=== PATIENT | female | born 1970 | race Caucasian/White ===

== ENCOUNTER 2017-08-04 21:04 | Inpatient (IN) | payer OTHER ==
[~2017-08-04] VITALS: Ht 157.5 cm; Wt 99.8 kg
[~2017-08-04 21:04] MED LIST: ALBUTEROL; ALBUTEROL2.5 MG/3 M IH; AVELOX ABC PAC400 MG PO; CEFADROXIL500 MG PO; COZAAR100 MG; GUAIFENESIN DM118 M1 PO; LEVAQUIN750 MG PO; LEVSIN/SL0.125 MG PO; MAXIDE; NEOTUSS PLUS L474 ML PO; PEPCID40 MG PO; PROTONIX40 MG PO; PROVENTIL HFA6.7 GM IH; PULMICORT; SINGULAIR 10MG10 MG PO; SYMBICORT 16010.2 GM IH; TESSALON200 MG PO; TUSNEL LIQUID178 ML PO; ZOFRAN4 MG PO; ZYNCOF 20-400120 ML PO
[2017-08-04] MEDS ORDERED: PULMICORT1 MG/2 ML (21:19)
[2017-08-07] MEDS ORDERED: LIPITOR20 MG PO (12:12)
[2017-08-07] MEDS ORDERED: AMLODIPINE BESY10 MG PO (12:12)
[2017-08-07] MEDS ORDERED: LOSARTAN POTASS50 MG PO (12:12)
[2017-08-07] MEDS ORDERED: ZOLOFT20 MG/1 ML PO (12:12)
[2017-08-07] MEDS ORDERED: 3-DAY VAGINAL C21 GM VAG (12:12)
[2017-08-07] MEDS ORDERED: XANAX0.25 MG PO (12:12)
== END 2017-08-07 14:35 | DRG 305 ==
LOC: ER 21:04 → ICU-2 08-05 16:23 → SEC-K 08-07 05:00
PROC: B246ZZZ Ultrasonography of Right and Left Heart (ICD-10-PCS; principal; 2017-08-05)
PROC: BW21YZZ Computerized Tomography (CT Scan) of Abdomen and Pelvis using Other Contrast (ICD-10-PCS; 2017-08-05)
PROC: C23GYZZ Positron Emission Tomographic (PET) Imaging of Myocardium using Other Radionuclide (ICD-10-PCS; 2017-08-06)
PROC: 4A12XM4 Monitoring of Cardiac Stress, External Approach (ICD-10-PCS; 2017-08-06)
PROC: 3E033HZ Introduction of Radioactive Substance into Peripheral Vein, Percutaneous Approach (ICD-10-PCS; 2017-08-06)
DX: I16.9 Hypertensive crisis, unspecified (principal); I11.9 Hypertensive heart disease without heart failure; R07.89 Other chest pain

== ENCOUNTER 2017-11-05 07:28 | Day surgery (SDC) | payer OTHER ==
[~2017-11-05 07:28] MED LIST changes: +3-DAY VAGINAL C21 GM VAG; +AMLODIPINE BESY10 MG PO; +LIPITOR20 MG PO; +LOSARTAN POTASS50 MG PO; +PULMICORT1 MG/2 ML; +XANAX0.25 MG PO; +ZOLOFT20 MG/1 ML PO
== END 2017-11-05 13:40 | disposition home or self-care (01) ==
LOC: AMB-ENDOS 07:28
DX: K64.1 Second degree hemorrhoids (principal)

== ENCOUNTER 2019-01-08 09:39 | Emergency (ER) | payer OTHER ==
[~2019-01-08] VITALS: Ht 157.5 cm; Wt 112.0 kg
== END 2019-01-08 17:27 | disposition home or self-care (01) ==
LOC: ER 09:39
DX: K57.32 Diverticulitis of large intestine without perforation or abscess without bleeding (principal)

== ENCOUNTER 2020-06-14 08:57 | Outpatient (CLI) | payer OTHER | END 2020-06-14 09:25 | disposition home or self-care (01) | LOC: LAB 08:57 | PROVIDERS: ATTEND Internal Medicine | DX: M79.81 Nontraumatic hematoma of soft tissue (principal) ==

== ENCOUNTER 2021-01-22 14:33 | Outpatient (CLI) | payer OTHER | END 2021-01-22 14:38 | disposition home or self-care (01) | LOC: SONOGRAMA 14:33 | DX: M25.462 Effusion, left knee (principal) ==

== ENCOUNTER 2022-11-13 09:25 | Emergency (ER) | payer OTHER ==
[~2022-11-13] VITALS: Ht 157.5 cm; Wt 111.1 kg
[2022-11-13] MEDS ORDERED: DICYCLOMINE HCL20 MG PO (09:40)
== END 2022-11-13 17:36 | disposition home or self-care (01) ==
LOC: ER 09:25
DX: K57.32 Diverticulitis of large intestine without perforation or abscess without bleeding (principal); Z91.013 Allergy to seafood; Z91.041 Radiographic dye allergy status; Z88.8 Allergy status to other drugs, medicaments and biological substances; I10 Essential (primary) hypertension

== ENCOUNTER 2023-01-18 19:13 | Emergency (ER) | payer OTHER ==
[~2023-01-18] VITALS: Ht 157.5 cm; Wt 113.4 kg
[~2023-01-18 19:13] MED LIST changes: +DICYCLOMINE HCL20 MG PO
[2023-01-18] MEDS ORDERED: PEPCID AC20 MG PO (20:40)
[2023-01-18] MEDS ORDERED: BACTRIM DS TAB1 EACH PO (20:40)
[2023-01-18] MEDS ORDERED: DICLOFENAC SODI75 MG PO (20:40)
== END 2023-01-18 20:49 | disposition home or self-care (01) ==
LOC: ER 19:13
DX: L03.90 Cellulitis, unspecified (principal); Z88.6 Allergy status to analgesic agent; Z91.041 Radiographic dye allergy status

== ENCOUNTER 2023-01-19 11:19 | Emergency (ER) | payer OTHER ==
[~2023-01-19] VITALS: Ht 157.5 cm; Wt 68.0 kg
[~2023-01-19 11:19] MED LIST changes: +BACTRIM DS TAB1 EACH PO; +DICLOFENAC SODI75 MG PO; +PEPCID AC20 MG PO
== END 2023-01-19 17:17 | disposition home or self-care (01) ==
LOC: ER 11:19
DX: I73.9 Peripheral vascular disease, unspecified (principal); I87.2 Venous insufficiency (chronic) (peripheral)

== ENCOUNTER 2023-06-10 09:50 | Emergency (ER) | payer OTHER ==
[~2023-06-10] VITALS: Ht 157.5 cm; Wt 110.2 kg
[2023-06-10] MEDS ORDERED: COZAAR50 MG PO (10:27)
[2023-06-10 11:30] LABS: HEMATOCRIT 42.2 % (36.0-45.00); HEMOGLOBIN 14.5 g/dL (12.0-15.00); MEAN CELL VOLUME 85.1 fL (80.00-100.00); MEAN CORPUSCULAR HEMOGLOBIN 29.3 pg (27.00-32.0); MEAN CORPUSCULAR HGB CONC 34.5 g/dl (32.0-36.0); PLATELET COUNT 198 K/uL (150-450); RED BLOOD COUNT 4.96 M/uL (4.00-6.00); RED CELL DISTRIBUTION WIDTH 14.1 % (11.5-14.5)
[2023-06-10 12:37] LABS: URINE APPEARANCE Clear; URINE BILIRRUBIN Negative (NEGATIVE); URINE BLOOD NHT; URINE COLOR Yellow; URINE GLUCOSE Negative (NEGATIVE); URINE LEUKOCYTE Negative; URINE NITRATE Negative; URINE PROTEIN Negative (NEGATIVE)
[2023-06-10 12:42] LABS: URINE BACTERIA 47.8 uL (0.0-1933); URINE EPITHELIAL CELLS 5.3 uL (0.0-38.8); URINE RBC 21.9 uL (0.0-20.8)
[2023-06-10 13:28] LABS: CALCIUM 8.7 mg/dL (8.5-10.1); CREATININE SERUM 0.77 mg/dL (0.55-1.02); GFR 77.83; POTASSIUM 3.64 mEq/L (3.5-5.1)
[2023-06-10] MEDS ORDERED: LEVSIN/SL0.125 MG SL (17:07)
[2023-06-10] MEDS ORDERED: METRONIDAZOLE500 MG PO (17:07)
[2023-06-10] MEDS ORDERED: OMEPRAZOLE40 MG PO (17:07)
[2023-06-10] MEDS ORDERED: CIPRO500 MG PO (17:07)
== END 2023-06-10 19:36 | disposition home or self-care (01) ==
LOC: ER 09:50
PROVIDERS: Emergency Medicine
DX: K57.92 Diverticulitis of intestine, part unspecified, without perforation or abscess without bleeding (principal); R10.9 Unspecified abdominal pain; Z88.6 Allergy status to analgesic agent; Z91.041 Radiographic dye allergy status
CPT/HCPCS: 36415; 74177; Q9965

== ENCOUNTER 2024-03-07 11:58 | Emergency (ER) | payer OTHER ==
[~2024-03-07] VITALS: Ht 157.5 cm; Wt 108.4 kg
[~2024-03-07 11:58] MED LIST changes: +CIPRO500 MG PO; +COZAAR50 MG PO; +LEVSIN/SL0.125 MG SL; +METRONIDAZOLE500 MG PO; +OMEPRAZOLE40 MG PO
[2024-03-07] MEDS ORDERED: METRONIDAZOLE/SODIUM CHLORIDE 500 MG/100 ML PIGGYBACK IV ONE ×2 (13:45→13:47)
[2024-03-07 14:15] LABS: HEMATOCRIT 43.9 % (36.0-45.00); HEMOGLOBIN 14.9 g/dL (12.0-15.00); MEAN CELL VOLUME 86.1 fL (80.00-100.00); MEAN CORPUSCULAR HEMOGLOBIN 29.2 pg (27.00-32.0); PLATELET COUNT 219 K/uL (150-450)
[2024-03-07 14:49] LABS: ALBUMIN 3.9 gm/dL (3.4-5.0); BILIRUBIN TOTAL 0.47 mg/dL (0.3-1.2); CALCIUM 9.2 mg/dL (8.5-10.1); CREATININE SERUM 0.92 mg/dL (0.55-1.02); GFR 63.38; GLOBULINA 3.6 G/DL (2.4-3.5); POTASSIUM 3.67 mEq/L (3.5-5.1); TOTAL PROTEIN 7.5 gm/dL (6.4-8.2)
[2024-03-07] MEDS ORDERED: FAMOTIDINE/PF 20 MG/2 ML VIAL IV PUSH ONE (15:00)
[2024-03-07 15:16] LABS: PH,URINE 5.5 (5.0-8.0); URINE APPEARANCE Clear; URINE BILIRRUBIN Negative (NEGATIVE); URINE BLOOD Negative; URINE COLOR Yellow; URINE GLUCOSE Negative (NEGATIVE); URINE KETONE Negative (NEGATIVE); URINE LEUKOCYTE Negative; URINE NITRATE Negative; URINE PROTEIN Trace (NEGATIVE); URINE UROBILINOGEN 0.2 E.U./dl
[2024-03-07 15:20] LABS: URINE BACTERIA 15.1 uL (0.0-1933); URINE CAST 3.66 uL (0.0-1.40); URINE EPITHELIAL CELLS 19.7 uL (0.0-38.8); URINE RBC 20.3 uL (0.0-20.8); URINE WBC 4.3 uL (0.0-23.2)
[2024-03-07 15:36] LABS: URINE MUCUS HEAVY
== END 2024-03-07 17:09 | disposition home or self-care (01) ==
LOC: ER 12:00
PROVIDERS: Emergency Medicine
DX: K64.1 Second degree hemorrhoids (principal); K59.00 Constipation, unspecified; I10 Essential (primary) hypertension; Z88.8 Allergy status to other drugs, medicaments and biological substances

== ENCOUNTER 2024-10-14 14:45 | Emergency (ER) | payer OTHER ==
[~2024-10-14] VITALS: Ht 160 cm; Wt 106.6 kg
[2024-10-14 15:25] VITALS: BP 114/79; O2SAT 98
[2024-10-14] MEDS ORDERED: METHYLPREDNISOLONE SOD SUCC 125 MG VIAL IV STA (16:51)
[2024-10-14] MEDS ORDERED: METHYLPREDNISOLONE SOD SUCC 125 MG VIAL ONE (17:03)
[2024-10-14 17:34] LABS: HEMATOCRIT 41.6 % (36.0-45.00); HEMOGLOBIN 14.1 g/dL (12.0-15.00); MEAN CELL VOLUME 85.4 fL (80.00-100.00); PLATELET COUNT 213 K/uL (150-450); RED BLOOD COUNT 4.87 M/uL (4.00-6.00); RED CELL DISTRIBUTION WIDTH 14.2 % (11.5-14.5)
[2024-10-14 17:59] LABS: CALCIUM 9.1 mg/dL (8.5-10.1); CREATININE SERUM 0.82 mg/dL (0.55-1.02); GFR 72.11; POTASSIUM 3.59 mEq/L (3.5-5.1)
[2024-10-14 18:22] LABS: PH,URINE 5.5 (5.0-8.0); URINE APPEARANCE Clear; URINE BILIRRUBIN Negative (NEGATIVE); URINE BLOOD Small; URINE COLOR Yellow; URINE GLUCOSE Negative (NEGATIVE); URINE KETONE Negative (NEGATIVE); URINE LEUKOCYTE Negative; URINE NITRATE Negative; URINE PROTEIN Negative (NEGATIVE); URINE UROBILINOGEN 0.2 E.U./dl
[2024-10-14 18:26] LABS: URINE BACTERIA 236.1 uL (0.0-1933); URINE EPITHELIAL CELLS 8.3 uL (0.0-38.8); URINE RBC 7.8 uL (0.0-20.8)
[2024-10-14 18:35] LABS: URINE CAST 0.14 uL (0.0-1.40); URINE WBC 1.7 uL (0.0-23.2)
[2024-10-14 18:57] LABS: INFLUENZA A AG NEGATIVE (NEGATIVE)
[2024-10-14 18:59] LABS: COVID-19 AG NEGATIVE (NEGATIVE)
[2024-10-14] MEDS ORDERED: CEFTRIAXONE SODIUM 1,000 MG VIAL IM STA (19:07)
[2024-10-14] MEDS ORDERED: CEFTRIAXONE SODIUM 1,000 MG VIAL ONE (19:31)
== END 2024-10-14 21:19 | disposition home or self-care (01) ==
LOC: ER 14:46
PROVIDERS: General Practice
DX: R05.8 Other specified cough (principal); Z91.013 Allergy to seafood; Z91.041 Radiographic dye allergy status; Z88.8 Allergy status to other drugs, medicaments and biological substances; Z20.822 Contact with and (suspected) exposure to COVID-19
CPT/HCPCS: 36415; 96365; 96372; 99282; J0696; J3490

== ENCOUNTER 2024-10-18 07:28 | Emergency (ER) | payer OTHER ==
[~2024-10-18] VITALS: Ht 157.5 cm; Wt 107.5 kg
[2024-10-18] MEDS ORDERED: LOSARTAN POTASS50 MG PO (08:31)
[2024-10-18] MEDS ORDERED: PEPCID AC20 MG PO (08:31)
[2024-10-18] MEDS ORDERED: ZYNCOF 400-201 EACH PO (08:37)
[2024-10-18] MEDS ORDERED: CEFDINIR300 MG PO (08:37)
[2024-10-18] MEDS ORDERED: MEDROL4 MG PO (08:37)
[2024-10-18] MEDS ORDERED: METHYLPREDNISOLONE SOD SUCC 125 MG VIAL IV STA (08:52)
[2024-10-18] MEDS ORDERED: LEVALBUTEROL HCL 1.25 MG/3 ML SOLUTION IH STA (08:53)
[2024-10-18] MEDS ORDERED: BUDESONIDE 0.5 MG/2 ML AMPUL.NEB IH STA (08:54)
[2024-10-18] MEDS ORDERED: MAGNESIUM SULFATE IN WATER 4 GM/100 ML PIGGYBACK IV STA (08:54)
[2024-10-18] MEDS ORDERED: HYDROCODONE/CHLORPHEN P-STIREX 5 ML ML PO STA (08:55)
[2024-10-18] MEDS ORDERED: 0.9 % SODIUM CHLORIDE 1,000 ML IV STA (08:56)
[2024-10-18] MEDS ORDERED: METHYLPREDNISOLONE SOD SUCC 125 MG VIAL ONE (09:02)
[2024-10-18 10:12] LABS: PH,URINE 6.5 (5.0-8.0); URINE APPEARANCE Clear; URINE BILIRRUBIN Negative (NEGATIVE); URINE BLOOD Trace; URINE COLOR Yellow; URINE GLUCOSE Negative (NEGATIVE); URINE KETONE Negative (NEGATIVE); URINE LEUKOCYTE Negative; URINE NITRATE Negative; URINE PROTEIN Negative (NEGATIVE); URINE UROBILINOGEN 0.2 E.U./dl
[2024-10-18 10:17] LABS: URINE EPITHELIAL CELLS 53.2 uL (0.0-38.8); URINE RBC 10.6 uL (0.0-20.8)
[2024-10-18 10:17] LABS: HEMATOCRIT 41.7 % (36.0-45.00); HEMOGLOBIN 14.2 g/dL (12.0-15.00); MEAN CELL VOLUME 86.6 fL (80.00-100.00); MEAN CORPUSCULAR HEMOGLOBIN 29.4 pg (27.00-32.0); MEAN CORPUSCULAR HGB CONC 33.9 g/dl (32.0-36.0); PLATELET COUNT 218 K/uL (150-450); RED BLOOD COUNT 4.82 M/uL (4.00-6.00); RED CELL DISTRIBUTION WIDTH 14.2 % (11.5-14.5)
[2024-10-18 10:24] LABS: URINE BACTERIA 3.6 uL (0.0-1933); URINE WBC 0.3 uL (0.0-23.2)
[2024-10-18] MEDS ORDERED: LEVALBUTEROL HCL 1.25 MG/3 ML SOLUTION IH ONE (10:33)
[2024-10-18] MEDS ORDERED: BUDESONIDE 0.5 MG/2 ML AMPUL.NEB IH ONE (10:33)
[2024-10-18 10:46] LABS: INFLUENZA A AG NEGATIVE (NEGATIVE)
[2024-10-18 10:49] LABS: CREATININE SERUM 0.69 mg/dL (0.55-1.02); GFR 88.01; POTASSIUM 4.24 mEq/L (3.5-5.1)
[2024-10-18 10:50] LABS: ABG PH 7.459 (7.35-7.45); ABG PO2 89.4 mmHg (80-100); BASE EXCESS 2.6 mmol/l; BICARBONATE 26.3 mmol/l (23-25); SaO2 97.4 %; Tco2 27.5 mmol/l
[2024-10-18 11:33] LABS: allen test SATISFACTORY; o2 21 %; puncture site RADIAL LEFT
[2024-10-18 11:34] LABS: mode ROOM AIR
== END 2024-10-18 14:30 | disposition home or self-care (01) ==
LOC: ER 07:29
PROVIDERS: General Practice
DX: J45.909 Unspecified asthma, uncomplicated (principal); I10 Essential (primary) hypertension; Z88.8 Allergy status to other drugs, medicaments and biological substances

== ENCOUNTER 2024-10-28 16:21 | Inpatient (IN) | payer OTHER ==
[~2024-10-28] VITALS: Ht 157.5 cm; Wt 105.2 kg
[~2024-10-28 16:21] MED LIST changes: +CEFDINIR300 MG PO; +MEDROL4 MG PO; +ZYNCOF 400-201 EACH PO
[2024-10-28] MEDS ORDERED: PRILOSEC OTC20 MG PO (16:44)
--- NOTE | 2024-10-28 16:46 | NUR ---
PACIENTE ALERTA Y ORIENTADA X3. REFIERE COMENZAR CON [employer] [facility], TOS Y DIFICULTAD RESPIRATORIO DESDE HACE VARIOS MAHONEY QUE NO MEJORA CON [place]. AL MOMENTO DE TRIAGE NO SE OBSERVA DISTRESS Y SATURANDO 97%. SE ELDA S/V Y SE UBICA.
[2024-10-28] MEDS ORDERED: LEVALBUTEROL HCL 1.25 MG/3 ML SOLUTION IH SCH (17:00)
[2024-10-28] MEDS ORDERED: METHYLPREDNISOLONE SOD SUCC 125 MG VIAL IV STA (17:00)
[2024-10-28] MEDS ORDERED: 0.9 % SODIUM CHLORIDE 1,000 ML IV STA (17:01)
[2024-10-28] MEDS ORDERED: METHYLPREDNISOLONE SOD SUCC 125 MG VIAL ONE (17:09)
[2024-10-28] MEDS ORDERED: LEVALBUTEROL HCL 0.63 MG/3 ML SOLUTION IH ONE (17:24)
--- NOTE | 2024-10-28 17:45 | NUR ---
PTE ALERTA Y ORIENTADA X3 ES EVALUADA POR EL DR. BROOKE. SE ORIENTA SOBRE TRATAMIENTO, VERBALIZA ENTENDER. SE CANALIZA, COLECTA MUESTRAS DE LAB Y SE ADMINISTRA MEDICAMENTO JACQUELINE ORDEN MEDICA BAJO MEDIDAS ASEPTICAS. SE NOTIFICA CT. TERAPIAS ALVIRA ADMINISTRA TERAPIAS Y REALZIA ABG.
[2024-10-28 18:04] LABS: HEMATOCRIT 41.7 % (36.0-45.00); HEMOGLOBIN 14.1 g/dL (12.0-15.00); MEAN CORPUSCULAR HEMOGLOBIN 29.3 pg (27.00-32.0); MEAN CORPUSCULAR HGB CONC 33.7 g/dl (32.0-36.0); PLATELET COUNT 174 K/uL (150-450); RED BLOOD COUNT 4.79 M/uL (4.00-6.00); RED CELL DISTRIBUTION WIDTH 14.3 % (11.5-14.5)
[2024-10-28 18:23] LABS: ALBUMIN 3.1 gm/dL (3.4-5.0); BILIRUBIN TOTAL 0.36 mg/dL (0.3-1.2); CALCIUM 8.6 mg/dL (8.5-10.1); CREATININE SERUM 0.82 mg/dL (0.55-1.02); GFR 72.11; GLOBULINA 3.6 G/DL (2.4-3.5); POTASSIUM 3.75 mEq/L (3.5-5.1); TOTAL PROTEIN 6.7 gm/dL (6.4-8.2)
[2024-10-28 18:29] LABS: COVID-19 AG NEGATIVE (NEGATIVE)
[2024-10-28 18:30] LABS: INFLUENZA A AG NEGATIVE (NEGATIVE)
[2024-10-28 18:30] LABS: ABG PH 7.445 (7.35-7.45); ABG pCO2 38.1 mmHg (35-45); BASE EXCESS 1.6 mmol/l; BICARBONATE 25.5 mmol/l (23-25); SaO2 95.6 %; Tco2 26.7 mmol/l; o2 21 %
[2024-10-28 18:31] LABS: allen test SATISFACTORY; mode ROOM AIR; puncture site RADIAL RIGHT
[2024-10-28 18:32] LABS: ABG PO2 75.3 mmHg (80-100)
[2024-10-28] MEDS ORDERED: ALBUTEROL SULFATE 1.25 MG/3 ML AMPUL.NEB IH SCH (20:41)
[2024-10-28] MEDS ORDERED: IPRATROPIUM BROMIDE 0.5 MG/2.5 ML AMPUL.NEB IH SCH (20:42)
[2024-10-28] MEDS ORDERED: AZITHROMYCIN 500 MG VIAL IV SCH (20:42)
[2024-10-28] MEDS ORDERED: METHYLPREDNISOLONE SOD SUCC 40 MG VIAL IV SCH (20:42)
[2024-10-28] MEDS ORDERED: LOSARTAN POTASSIUM 50 MG TABLET PO SCH (20:45)
[2024-10-28] MEDS ORDERED: AMLODIPINE BESYLATE 10 MG TABLET PO SCH (21:07)
[2024-10-29] MEDS ORDERED: METHYLPREDNISOLONE SOD SUCC 40 MG VIAL ONE (01:05)
[2024-10-29] MEDS ORDERED: AZITHROMYCIN 500 MG VIAL IV ONE ×2 (01:05→07:44)
[2024-10-29] MEDS ORDERED: IPRATROPIUM BROMIDE 0.5 MG/2.5 ML AMPUL.NEB IH ONE (01:14)
[2024-10-29] MEDS ORDERED: ALBUTEROL SULFATE 3 ML/2.5 MG AMPUL.NEB IH ONE (01:14)
[2024-10-29 03:21] VITALS: BP 109/72; O2SAT 94
[2024-10-29 09:00] VITALS: BP 130/76; O2SAT 96
[2024-10-29] MEDS ORDERED: FAMOtidine 20 MG TABLET PO SCH (17:00)
[2024-10-29 17:09] VITALS: BP 125/75
[2024-10-29] MEDS ORDERED: ALBUTEROL SULFATE 3 ML/2.5 MG AMPUL.NEB IH SCH (20:00)
[2024-10-30 03:32] VITALS: BP 127/74; O2SAT 96
[2024-10-30] MEDS ORDERED: AZITHROMYCIN 500 MG VIAL IV ONE (08:11)
[2024-10-30 08:16] VITALS: BP 128/76; O2SAT 97
[2024-10-30] MEDS ORDERED: DOCUSATE SODIUM 100MG CAP PO SCH (17:00)
[2024-10-30] MEDS ORDERED: PANTOPRAZOLE SODIUM 40 MG/VIAL VIAL IV SCH (17:00)
[2024-10-30 18:06] VITALS: BP 123/74; O2SAT 97
[2024-10-31] VITALS: BP 126/69; O2SAT 97
[2024-10-31] MEDS ORDERED: AZITHROMYCIN 500 MG VIAL IV ONE (07:54)
[2024-10-31] MEDS ORDERED: MINERAL OIL 30 ML BLIST.PACK PO STA (08:18)
[2024-10-31] MEDS ORDERED: LACTULOSE 20 G/30 ML BLIST.PACK PO STA (08:18)
[2024-10-31] MEDS ORDERED: MAGNESIUM HYDROXIDE 30 ML BLIST.PACK PO STA (08:19)
[2024-10-31] MEDS ORDERED: METHYLPREDNISOLONE SOD SUCC 40 MG VIAL IV SCH (09:00)
[2024-10-31 09:01] VITALS: BP 138/69; O2SAT 97
[2024-10-31 20:34] VITALS: BP 128/75
[2024-11-01 01:02] VITALS: BP 115/68; O2SAT 95
[2024-11-01 08:00] VITALS: BP 127/81; O2SAT 96
[2024-11-01] MEDS ORDERED: AZITHROMYCIN 500 MG VIAL IV ONE (08:03)
[2024-11-01 18:14] VITALS: BP 140/83; O2SAT 97
[2024-11-01] MEDS ORDERED: LACTOBACILLUS 5 DR/0.2 ML BLIST.PACK PO SCH (20:38)
[2024-11-01] MEDS ORDERED: FLUCONAZOLE IN NACL,ISO-OSM 100 ML IV SCH (20:38)
[2024-11-01] MEDS ORDERED: CLOTRIMAZOLE 10 MG TROCHE MM SCH (21:00)
[2024-11-01] MEDS ORDERED: FLUCONAZOLE IN NACL,ISO-OSM 200 MG/100 ML PIGGYBAG IV ONE (22:07)
[2024-11-01] MEDS ORDERED: CLOTRIMAZOLE 10 MG TROCHE MM ONE (22:07)
[2024-11-02 02:54] VITALS: BP 164/90; O2SAT 98
[2024-11-02] MEDS ORDERED: 0.9 % SODIUM CHLORIDE 1,000 ML IV SCH (07:30)
[2024-11-02] MEDS ORDERED: AZITHROMYCIN 500 MG VIAL IV ONE (07:59)
[2024-11-02] MEDS ORDERED: LACTOBACILLUS ACIDOPHILUS 1 CAP CAP PO SCH (09:00)
[2024-11-02 09:07] VITALS: BP 134/84; O2SAT 93
[2024-11-02] MEDS ORDERED: levoFLOXacin 750 MG TABLET PO SCH (10:28)
[2024-11-02] MEDS ORDERED: DIPHENHYDRAMINE HCL 150 MG,MAG HYDROX/ALUMINUM HYD/SIMETH 60 ML,LIDOCAINE HCL 60 ML BC SCH (13:00)
[2024-11-02 17:51] VITALS: BP 133/80; O2SAT 97
[2024-11-03 00:13] VITALS: BP 135/80; O2SAT 94
[2024-11-03] MEDS ORDERED: METHYLPREDNISOLONE SOD SUCC 40 MG VIAL IV SCH (01:00)
[2024-11-03 09:27] VITALS: BP 148/84; O2SAT 96
[2024-11-03] MEDS ORDERED: PANTOPRAZOLE SODIUM 40 MG TABLET.DR PO SCH (17:00)
[2024-11-03 17:09] VITALS: BP 144/83; O2SAT 97
[2024-11-04 02:16] VITALS: BP 131/80; O2SAT 96
[2024-11-04] MEDS ORDERED: LACTULOSE 20 G/30 ML BLIST.PACK PO SCH (09:00)
[2024-11-04 15:20] VITALS: BP 135/80; O2SAT 96
[2024-11-05 02:28] VITALS: BP 132/82; O2SAT 99
[2024-11-06] MEDS ORDERED: MEDROLPACK (15:49)
== END 2024-11-05 12:32 | disposition home or self-care (01) | DRG 202 ==
LOC: ER 16:22 → MEDI 21:17
PROVIDERS: General Practice; ADMIT Internal Medicine; ATTEND Internal Medicine
PROC: BW24ZZZ Computerized Tomography (CT Scan) of Chest and Abdomen (ICD-10-PCS; principal; 2024-10-28)
DX: J21.9 Acute bronchiolitis, unspecified (principal); J45.901 Unspecified asthma with (acute) exacerbation; R09.02 Hypoxemia

== ENCOUNTER 2024-11-06 15:36 | Emergency (ER) | payer OTHER ==
[~2024-11-06] VITALS: Ht 162.6 cm; Wt 117.9 kg
[~2024-11-06 15:36] MED LIST changes: +PRILOSEC OTC20 MG PO
[2024-11-06] MEDS ORDERED: MEDROLPACK (15:49)
[2024-11-06] MEDS ORDERED: FAMOTIDINE/PF 20 MG in 0.9 % SODIUM CHLORIDE 8 ML IV PUSH STA (16:50)
[2024-11-06] MEDS ORDERED: FAMOTIDINE/PF 20 MG/2 ML VIAL ONE (16:53)
[2024-11-06] MEDS ORDERED: ONDANSETRON HCL 2 MG/ML VIAL ONE (16:53)
[2024-11-06] MEDS ORDERED: ONDANSETRON HCL 2 MG/ML VIAL IV ONE (17:00)
[2024-11-06] MEDS ORDERED: 0.9 % SODIUM CHLORIDE 1,000 ML IV SCH (17:00)
[2024-11-06 17:29] LABS: HEMATOCRIT 43.2 % (36.0-45.00); HEMOGLOBIN 14.5 g/dL (12.0-15.00); MEAN CELL VOLUME 88.2 fL (80.00-100.00); MEAN CORPUSCULAR HEMOGLOBIN 29.5 pg (27.00-32.0); MEAN CORPUSCULAR HGB CONC 33.5 g/dl (32.0-36.0); PLATELET COUNT 185 K/uL (150-450); RED CELL DISTRIBUTION WIDTH 14.5 % (11.5-14.5)
[2024-11-06 17:52] LABS: ALBUMIN 3.1 gm/dL (3.4-5.0); BILIRUBIN TOTAL 0.51 mg/dL (0.3-1.2); CALCIUM 8.3 mg/dL (8.5-10.1); CREATININE SERUM 0.95 mg/dL (0.55-1.02); GFR 60.85; GLOBULINA 3.4 G/DL (2.4-3.5); POTASSIUM 4.79 mEq/L (3.5-5.1); TOTAL PROTEIN 6.5 gm/dL (6.4-8.2)
== END 2024-11-06 22:35 | disposition home or self-care (01) ==
LOC: ER 15:36
PROVIDERS: General Practice
DX: K52.89 Other specified noninfective gastroenteritis and colitis (principal); Z91.013 Allergy to seafood; Z91.041 Radiographic dye allergy status; J45.909 Unspecified asthma, uncomplicated; J22 Unspecified acute lower respiratory infection

== ENCOUNTER 2024-11-10 08:42 | Emergency (ER) | payer OTHER ==
[~2024-11-10] VITALS: Ht 157.5 cm; Wt 101.6 kg
[~2024-11-10 08:42] MED LIST changes: +MEDROLPACK
[2024-11-10] MEDS ORDERED: SYMBICORT 16010.2 GM (09:03)
[2024-11-10] MEDS ORDERED: LEVALBUTEROL HCL 1.25 MG/3 ML SOLUTION IH STA (10:04)
[2024-11-10] MEDS ORDERED: BUDESONIDE 0.5 MG/2 ML AMPUL.NEB IH STA (10:04)
[2024-11-10] MEDS ORDERED: RINGERS SOLUTION,LACTATED 1,000 ML IV SCH (10:15)
[2024-11-10 11:59] LABS: BASO % 0.3 % (0.1-1.2); EOS # 0.14 (0.04-0.54); EOS % 1.2 % (0.7-7.0); HEMATOCRIT 44.5 % (34.1-44.9); HEMOGLOBIN 14.7 g/dL (11.2-15.7); LYMPH # 1.77 (1.18-3.74); LYMPH % 15.7 % (19.3-53.1); MEAN CORPUSCULAR HEMOGLOBIN 28.2 pg (25.6-32.2); MONO # 1.18 (0.24-0.82); MONO % 10.5 % (4.7-12.5); NEUT # 7.87 (1.56-6.13); NEUT % 69.9 % (34.0-71.1); RED BLOOD COUNT 5.22 M/uL (3.93-5.22)
[2024-11-10 12:00] LABS: INFLUENZA A AG NEGATIVE (NEGATIVE)
[2024-11-10 13:00] LABS: ALBUMIN 3.2 gm/dL (3.4-5.0); BILIRUBIN TOTAL 0.75 mg/dL (0.3-1.2); BILIRUBIN,CONJUGATED 0.16 mg/dL (0.0-0.2); BILIRUBIN,UNCONJUGATED 0.59 mg/dL (0.0-0.6); CALCIUM 8.8 mg/dL (8.5-10.1); CREATININE SERUM 0.9 mg/dL (0.55-1.02); GFR 64.77; POTASSIUM 3.64 mEq/L (3.5-5.1); TOTAL PROTEIN 6.8 gm/dL (6.4-8.2)
[2024-11-10 13:21] LABS: PLATELET COUNT 187 K/uL (163-369)
[2024-11-10] MEDS ORDERED: CIPROFLOXACIN IN 5 % DEXTROSE 400 MG/200 ML PIGGYBAG IV ONE (14:01)
[2024-11-10] MEDS ORDERED: METRONIDAZOLE/SODIUM CHLORIDE 500 MG/100 ML PIGGYBACK IV ONE (14:01)
[2024-11-10] MEDS ORDERED: CIPROFLOXACIN IN 5 % DEXTROSE 400 MG/200 ML PIGGYBAG IV STA (14:02)
[2024-11-10] MEDS ORDERED: METRONIDAZOLE/SODIUM CHLORIDE 500 MG/100 ML PIGGYBACK IV STA (14:03)
[2024-11-10 16:32] LABS: PH,URINE 6.5 (5.0-8.0); URINE APPEARANCE Clear; URINE BILIRRUBIN Negative (NEGATIVE); URINE BLOOD NHT; URINE COLOR Yellow; URINE GLUCOSE Negative (NEGATIVE); URINE KETONE Trace (NEGATIVE); URINE LEUKOCYTE Small; URINE NITRATE Negative; URINE PROTEIN Trace (NEGATIVE); URINE UROBILINOGEN 0.2 E.U./dl
[2024-11-10 16:37] LABS: URINE BACTERIA 1542.1 uL (0.0-1933); URINE EPITHELIAL CELLS 62.6 uL (0.0-38.8); URINE RBC 20.9 uL (0.0-20.8); URINE WBC 54.4 uL (0.0-23.2)
[2024-11-10 16:52] LABS: URINE CAST 1.17 uL (0.0-1.40)
== END 2024-11-10 17:42 | disposition home or self-care (01) ==
LOC: ER 08:50
PROVIDERS: General Practice
DX: K57.32 Diverticulitis of large intestine without perforation or abscess without bleeding (principal); J45.909 Unspecified asthma, uncomplicated; R10.9 Unspecified abdominal pain; Z88.3 Allergy status to other anti-infective agents; Z91.041 Radiographic dye allergy status

== ENCOUNTER → 2025-01-01 | Emergency (ER) | payer OTHER ==
[~2025-01-01] VITALS: Ht 157.5 cm; Wt 104.3 kg
[~2025-01-01] MED LIST changes: +EPINEPHRINE HCL/PF 1 MG/ML AMPUL IJ ONE; +SINGULAIR10 MG PO; +SYMBICORT 16010.2 GM
[2025-01-01 09:17] LABS: BASO % 0.9 % (0.1-1.2); EOS # 0.29 (0.04-0.54); EOS % 4.4 % (0.7-7.0); HEMOGLOBIN 14.6 g/dL (11.2-15.7); LYMPH # 1.23 (1.18-3.74); LYMPH % 18.7 % (19.3-53.1); MONO # 0.44 (0.24-0.82); MONO % 6.7 % (4.7-12.5); NEUT # 4.56 (1.56-6.13); NEUT % 69.1 % (34.0-71.1); PLATELET COUNT 230 K/uL (163-369); RED BLOOD COUNT 4.87 M/uL (3.93-5.22); RED CELL DISTRIBUTION WIDTH 13.5 % (11.6-14.4)
[2025-01-01 09:33] LABS: INR < 0.93; PARTIAL THROMBOPLASTIN TIME 28.1 SECONDS (22.0-34.0); PROTHROMBIN TIME 10.2 SECONDS (9.0-11.5)
== END | disposition home or self-care (01) ==
LOC: ER 07:32
PROVIDERS: Emergency Medicine
DX: R04.0 Epistaxis (principal); I10 Essential (primary) hypertension; Z88.8 Allergy status to other drugs, medicaments and biological substances; Z87.09 Personal history of other diseases of the respiratory system

== ENCOUNTER 2025-04-09 11:50 | Emergency (ER) | payer OTHER ==
[~2025-04-09] VITALS: Ht 157.5 cm; Wt 108.0 kg
[~2025-04-09 11:50] MED LIST changes: -EPINEPHRINE HCL/PF 1 MG/ML AMPUL IJ ONE
[2025-04-09] MEDS ORDERED: KETOROLAC TROMETHAMINE 30 MG VIAL IV ONE (14:30)
[2025-04-09] MEDS ORDERED: 0.9 % SODIUM CHLORIDE 1,000 ML IV ONE (14:30)
[2025-04-09] MEDS ORDERED: ONDANSETRON HCL 2 MG/ML VIAL IV ONE (14:30)
[2025-04-09] MEDS ORDERED: KETOROLAC TROMETHAMINE 30 MG VIAL ONE (16:08)
[2025-04-09] MEDS ORDERED: ONDANSETRON HCL 2 MG/ML VIAL ONE (16:08)
[2025-04-09 16:13] LABS: BASO % 0.8 % (0.1-1.2); EOS # 0.20 (0.04-0.54); EOS % 2.3 % (0.7-7.0); LYMPH # 1.85 (1.18-3.74); LYMPH % 21.5 % (19.3-53.1); MEAN PLATELET VOLUME 10.00 fl (9.4-12.4); MONO # 0.57 (0.24-0.82); MONO % 6.6 % (4.7-12.5); NEUT # 5.86 (1.56-6.13); NEUT % 68.2 % (34.0-71.1); RED CELL DISTRIBUTION WIDTH 13.3 % (11.6-14.4)
[2025-04-09 16:20] LABS: ERYTHROCYTE SEDIMENTATION RATE 9 mm/hr (0-30)
[2025-04-09 16:48] LABS: INR 0.95
[2025-04-09 16:52] LABS: ALT/SGPT 29.0 U/L (12-78); AST/SGOT 16.0 U/L (15-37); BILIRUBIN TOTAL 0.51 mg/dL (0.3-1.2); BUN CREA RATIO 16.0 (7.0-25.0); CREATININE SERUM 0.77 mg/dL (0.55-1.02); GFR 77.27; GLOBULINA 3.9 G/DL (2.4-3.5); GLUCOSE FASTING 117.0 mg/dL (65-100); OSMOLALITY SERUM 286.0 MOSM/KG (275-295)
[2025-04-09 16:55] LABS: URINE APPEARANCE Clear; URINE BILIRRUBIN Negative (NEGATIVE); URINE BLOOD Negative; URINE COLOR Yellow; URINE GLUCOSE Negative (NEGATIVE); URINE KETONE Negative (NEGATIVE); URINE LEUKOCYTE Negative; URINE NITRATE Negative; URINE PROTEIN Negative (NEGATIVE); URINE UROBILINOGEN 0.2 E.U./dl
[2025-04-09 16:58] LABS: URINE BACTERIA 234.0 uL (0.0-1933); URINE EPITHELIAL CELLS 3.3 uL (0.0-38.8); URINE RBC 2.3 uL (0.0-20.8); URINE WBC 4.6 uL (0.0-23.2)
[2025-04-09 17:01] LABS: URINE CAST 0.00 uL (0.0-1.40)
[2025-04-09] MEDS ORDERED: KETO10TA2 PO (19:26)
[2025-04-09] MEDS ORDERED: ZOFRAN8 MG PO (19:26)
[2025-04-09] MEDS ORDERED: DICY20TA PO (19:26)
[2025-04-09] MEDS ORDERED: PEPCID AC20 MG PO (19:26)
== END 2025-04-09 23:11 | disposition home or self-care (01) ==
LOC: ER 11:51
DX: R10.31 Right lower quadrant pain (principal); R10.32 Left lower quadrant pain; B34.9 Viral infection, unspecified; K57.30 Diverticulosis of large intestine without perforation or abscess without bleeding; Z88.8 Allergy status to other drugs, medicaments and biological substances; Z87.09 Personal history of other diseases of the respiratory system; Z91.013 Allergy to seafood; K45.8 Other specified abdominal hernia without obstruction or gangrene; N28.1 Cyst of kidney, acquired
CPT/HCPCS: 36415; 71046; 74176; 93005; 96365; 96366; 99283; J1885; J2405; J7030